=== PATIENT | female | born 1970 | race Caucasian/White ===

== ENCOUNTER 2021-02-18 16:37 | Emergency (ER) | payer OTHER, SELFPAY ==
[2021-02-18 17:04] VITALS: BP 147/90; PULSE 83; RESP 16; TEMP 37.3; O2SAT 100; BMI 22.3
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
[2021-02-18 22:36] VITALS: BP 145/85; PULSE 82; RESP 16; O2SAT 99
== END 2021-02-18 22:37 | disposition home or self-care (01) ==
PROVIDERS: Emergency Provider Emergency Medicine
DX: M25.512 Pain in left shoulder (principal); F17.290 Nicotine dependence, other tobacco product, uncomplicated
CPT/HCPCS: 73000; 99281; 99283